=== PATIENT | male | born 1965 | race Caucasian/White ===

== ENCOUNTER → 2020-06-15 | Outpatient (CLI) | payer BC ==
--- NOTE | 2020-06-15 08:20 | US ---
EXAMINATION TYPE: US carotid duplex BILAT DATE OF EXAM: 06/15/2020 COMPARISON: NONE CLINICAL HISTORY: E04.9 Nontoxic goiter R09.89 cartoid bruit. Bruit EXAM MEASUREMENTS: RIGHT: Peak Systolic Velocity (PSV) cm/sec ----- Right CCA: 118 ----- Right ICA: 91.7 ----- Right ECA: 130 ICA/CCA ratio: .7 RIGHT: End Diastole cm/sec ----- Right CCA: 18.3 ----- Right ICA: 25.1 ----- Right ECA: 21.1 LEFT: Peak Systolic Velocity (PSV) cm/sec ----- Left CCA: 130 ----- Left ICA: 91.1 ----- Left ECA: 96.5 ICA/CCA ratio: .7 LEFT: End Diastole cm/sec ----- Left CCA: 27.2 ----- Left ICA: 28.5 ----- Left ECA: 11.6 VERTEBRALS (direction of flow): Right Vertebral: Antegrade Left Vertebral: Antegrade Rhythm: Normal No significant stenosis seen IMPRESSION: No evidence for hemodynamically significant stenosis. Criteria for Assigning % of Stenosis / Diameter reduction (Estimation based on the indirect measurements of the internal carotid artery velocities (ICA PSV). 1. Normal (no stenosis)=ICA PSV < 125 cm/s: ratio < 2.0: ICA EDV<40 cm/s. 2. Less than 50% stenosis=ICA PSV < 125 cm/s: ratio < 2.0: ICA EDV<40 cm/s. 3. 50 to 69% stenosis=ICA PSV of 125 to 230 cm/s: ration 2.0 ? 4.0: ICA EDV 40-100 cm/s. 4. Greater than 70% stenosis to near occlusion= ICA PSV > 230 cm/s: ratio > 4.0: ICA EDV > 100 cm/s. 5. Near occlusion= ICA PSV velocities may be low or undetectable: variable ratio and ICA EDV. 6. Total occlusion=unable to detect flow.
--- NOTE | 2020-06-15 08:24 | US ---
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 GLAND SIZE: Right Lobe: 6.1 x 3.0 x 2.4 cm Overall Parenchyma: heterogenous Left Lobe: 6.0 x 2.4 x 3.7 cm Overall Parenchyma: heterogeneous Isthmus Thickness: .8 cm NODULES RIGHT: # of nodules measured on right: Multiple measured 3 largest. 1. 2.6 x X 1.0 x 1.9 cm solid nodule at the upper pole with well-defined margins; . This nodule i s wider than tall and shows intranodular vascularity. Prior size: no prior 2. 1.4 X 1.0 x 1.6 cm mixed nodule at the lower pole with well-defined margins; . This nodule is wi layne than tall and shows intranodular vascularity. Prior size: no prior 3. 1.7 X .9 x 1.5 cm solid nodule at the mid pole with well-defined margins; . This nodule is wider than tall and shows intranodular vascularity. Prior size: no prior LEFT: # of nodules measured on left: Multiple measured 2 1. 1.3 X .7 x 1.3 cm solid nodule at the upper pole with well-defined margins; . This nodule is wi layne than tall and shows intranodular vascularity. Prior size: no prior 2. 1.9 X 1.7 x 1.8 cm solid nodule at the lower pole with well-defined margins; . This nodule is wi layne than tall and shows intranodular vascularity. Prior size: no prior ISTHMUS: # of nodules measured in the isthmus: 0 Bilateral neck scanned, no evidence of lymphadenopathy. IMPRESSION: Nonspecific thyroid nodularity. The need to biopsy should be made on a clinical basis.
== END | disposition home or self-care (01) ==
LOC: RADUSWWP 06:56
PROVIDERS: ATTEND Family Medicine
DX: R09.89 Other specified symptoms and signs involving the circulatory and respiratory systems (principal); E04.2 Nontoxic multinodular goiter
CPT/HCPCS: 76536; 93880

== ENCOUNTER 2025-02-17 08:24 | Day surgery (SDC) | payer BC, OTHER ==
[2025-02-17 08:58] VITALS: RESP 18; TEMP 98.4
--- NOTE | 2025-02-17 12:23 | US ---
EXAMINATION TYPE: US FNA thyroid first lesion, US FNA thyroid each add lesion DATE OF EXAM: 02/17/2025 10:15 AM CLINICAL INDICATION:Male, 59 years old with history of E04.2 NONTOXIC MULTINODULAR GOITER; TR 4 left- sided nodule; TR 3 right-sided nodule. COMPARISON: Most recent prior ultrasound July 06, 2024 and older studies. ATTENDING: Dr. Bui PROCEDURE: Informed consent was obtained. The risks and benefits of the procedure were discussed with the patien t. The discussion included possibility of nondiagnostic results. The site was marked. Timeout procedu re was performed Ultrasound imaging redemonstrates multiple bilateral nodules including heterogeneous ill-defined larg est solid nodule mid to lower pole level left thyroid lobe with some shadowing calcification and 2.0 cm solid and cystic nodule upper pole level of the right thyroid lobe requested or sampling by [facility] physician. The patient was prepped, draped in the usual sterile fashion, and locally anesthetized with 1% lidoca ine. Five fine needle aspiration were then performed with a 25 gauge needle first of the left thyroi d nodule and then of the right thyroid nodule. Samples were sent to the pathology department for furt her analysis. Patient tolerated the procedure without incident and was sent home in stable condition . IMPRESSION: Successful ultrasound guided fine needle aspiration. Low index of suspicion right-sided nodule. Low to intermediate index of suspicion for left-sided nodule. [facility], , 02/17/2025 12:20 PM
[2025-02-17 17:01] VITALS: BP 114/65; PULSE 74
== END 2025-02-17 10:35 | disposition home or self-care (01) ==
LOC: RADPROMAIN 08:24
PROVIDERS: ATTEND Family Medicine
DX: E04.2 Nontoxic multinodular goiter (principal)
CPT/HCPCS: 10005; 10006; 88173; 88305

== ENCOUNTER 2025-03-22 08:17 | Day surgery (SDC) | payer BC, OTHER ==
[2025-03-20 15:25] VITALS: BMI 29.3
[~2025-03-22 08:17] MED LIST: LACTATED RINGERS 1,000 ML IV SCH
[2025-03-22] MEDS: IV FLUID CONTINUATION 1,000 ML IV ONE ×3 (08:34→10:04)
[2025-03-22 08:39] VITALS: TEMP 98.1
[2025-03-22 08:59] LABS: Glucose,Whole Blood 156 mg/dL (70-110)
[2025-03-22] MEDS ORDERED: PROPOFOL 10 MG/ML 20 ML VIAL IV ONE (09:43)
--- NOTE | 2025-03-22 10:01 | P.PCN ---
Date of Procedure: 03/22/25 Procedure(s) Performed: BRIEF HISTORY: Patient is a 60-year-old pleasant white male scheduled for an elective colonoscopy as a part of screening for colon cancer. PROCEDURE PERFORMED: Colonoscopy. PREOPERATIVE DIAGNOSIS: Screening for colon cancer. IV sedation per Anestia. PROCEDURE: After informed consent was obtained, the patient, was brought into the endoscopy unit. IV sedation was administered by Anesthesia under continuous monitoring. Digital rectal examination was normal. Initially the Olympus CF-160 flexible video colonoscope was then inserted in the rectum, gradually advanced into the cecum without any difficulty. Careful examination was performed as the scope was gradually being withdrawn. Ileocecal valve and the appendiceal orifice were visualized and appeared normal. Prep was excellent. Mucosa of the cecum, ascending colon, transverse colon, descending colon, sigmoid colon, and rectum appeared normal. Scattered sigmoid diverticulosis retroflexion was performed in the rectum and no lesions were seen. The patient tolerated the procedure well. IMPRESSION: Normal-appearing colon from rectum to cecum with no evidence of colorectal neoplasia. Scattered sigmoid diverticulosis. RECOMMENDATIONS: Findings of this examination were discussed with the patient as well as his family. He was advised to have repeat screening colonoscopy in 10 years..
[2025-03-22 10:26] VITALS: BP 134/77; PULSE 95; RESP 16
== END 2025-03-22 10:36 | disposition home or self-care (01) ==
LOC: ORWHC2ENDO 08:17
PROVIDERS: ATTEND Internal Medicine Gastroenterology
DX: Z12.11 Encounter for screening for malignant neoplasm of colon (principal); K57.30 Diverticulosis of large intestine without perforation or abscess without bleeding; K21.9 Gastro-esophageal reflux disease without esophagitis; I10 Essential (primary) hypertension; E11.9 Type 2 diabetes mellitus without complications; Z79.84 Long term (current) use of oral hypoglycemic drugs; Z79.899 Other long term (current) drug therapy
CPT/HCPCS: 45378; J2704